=== PATIENT | female | born 1955 | race Caucasian/White ===

== ENCOUNTER 2017-03-19 03:15 | Emergency (ER) | payer MEDICARE, OTHER ==
[2017-03-19] MEDS ORDERED: ONDANSETRON HCL 4 MG/2 ML VIAL ONE (03:43)
[2017-03-19 03:46] LABS: BASOPHILS 0.6 % (0.0-2.0); EOSINOPHILS 2.8 % (0.0-6.0); EOSINOPHILS# 0.2 X 10^3uL (0.0-0.4); HEMATOCRIT 38.6 % (36.0-48.0); HEMOGLOBIN 12.9 g/dL (12.0-16.0); LYMPHOCYTES# 2.7 X 10^3uL (0.8-3.8); MEAN CELL VOLUME 81.1 fL (80.0-100.0); MEAN CORPUS. HGB CONCENTRATION 33.3 g/dL (32.0-36.0); MEAN PLATELET VOLUME 7.3 fL (7.4-10.4); MONOCYTES 9.6 % (2.0-10.0); MONOCYTES# 0.8 X 10^3uL (0.2-1.0); NEUTROPHILS# 4.5 X 10^3uL (2.6-6.7); PLATELET COUNT 490 X 10^3uL (130-440); RED BLOOD COUNT 4.76 X 10^6uL (4.20-6.10); RED CELL DISTRIBUTION WIDTH 13.4 % (11.5-14.5); WHITE BLOOD COUNT 8.2 X 10^3uL (3.9-10.7)
[2017-03-19 03:57] LABS: BLOOD UREA NITROGEN 9 mg/dL (7-17); CHLORIDE 102 mmol/L (98-107); EST GLOMERULAR FILTRATION RATE > 60 mL/min; GLUCOSE 99 mg/dL (70-100); POTASSIUM 3.6 mmol/L (3.5-5.1); SODIUM 142 mmol/L (137-145)
--- NOTE | 2017-03-19 04:52 | ER NURSING DOCUMENTATION ---
Nurse's Notes [facility] Name:Jennifer Valenzuela Age:61 yrs Sex:Female :1955 Arrival Date:03/19/2017 Time:03:15 Bed1 Private MD:Hussain Pat Diagnosis:Joint Pain-: Side Effect from Reclast (Zoledronate);Dehydration Presentation: 03/19 03:23 Presenting complaint: Patient states: pt states that earlier this week she was given a bw2 shot for her OA, pt states that since the shot shes had increased joint pain and her 90 mg of morphine a day is not controling her pain. pt states that because of her pain she now has nausea. Transition of care: patient was not received from another setting of care. 03:23 Acuity: ADRIANNA 3 bw2 03:23 Method Of Arrival: Walk In 2 Triage Assessment: 03:26 General: Appears uncomfortable, Behavior is anxious. Pain: Complains of pain in bw2 generalized joint pain. GI: Reports nausea. Historical: - Allergies: Ziagen; Compazine; Ciprofloxacin HCl; Prochlorperazine Maleate; prochlorperazine Edisylate; - Tetanus: < 10 years. - Ebola Screening: : Patient negative for fever greater than or equal to 101.5 degrees Fahrenheit, and additional compatible Ebola Virus Disease symptoms. Patient denies exposure to infectious person. Patient denies travel to an Ebola-affected area in the 21 days before illness onset. No symptoms or risks identified at this time. . - Immunization history: Flu Vaccine < 1 year. - Social history: Smoking status: Patient states was never smoker of tobacco. Screenin:39 Infectious Disease Risk None. Abuse screen: Denies threats or abuse. Nutritional bw2 screening: No deficits noted. Assessment: 03:39 See Triage Assessment done by same RN. bw2 Vital Signs: 03:27 BP 111 / 88; Pulse 92; Resp 21; Temp 98(O); Pulse Ox 97% ; Weight 68.04 kg; Height 5 bw2 ft. 7 in. (170.18 cm); Pain 10/10; 04:45 BP 123 / 88; Pulse 76; Resp 16; Pulse Ox 98% ; jt 03:27 Body Mass Index 23.49 (68.04 kg, 170.18 cm) bw2 ED Course: 03:15 Patient arrived in ED. jt 03:16 Dorene Fallon is Primary Nurse. bw2 03:16 Hussain Pat MD is Private Physician. jt 03:25 Triage completed. bw2 03:26 Adams Gallardo MD is Attending Physician. cd 03:32 Inserted peripheral IV: saline lock: 20 gauge in right antecubital area and blood jt collected. 03:39 Valuables Remains with patient. bw2 04:41 Hussain Pat MD is Referral Physician. cd Administered Medications: 03:30 Drug: NS 0.9% 1000 ml; Route: IV; Rate: 1 bolus; Site: right antecubital; bw2 04:28 Follow up: IV Status: Completed infusion bw2 03:30 Drug: Zofran 4 mg; Route: IVP; Infused Over: 2 mins; Site: right antecubital; bw2 04:28 Follow up: Response: No adverse reaction bw2 03:33 Drug: Dilaudid 1 mg; Route: IVP; Site: right antecubital; bw2 04:28 Follow up: Response: No adverse reaction bw2 04:25 Drug: Dilaudid 0.5 mg; Route: IVP; Site: right antecubital; bw2 04:50 Follow up: Response: Pain is decreased 2 Outcome: 04:42 Discharge ordered by . uday 04:51 Discharged to home ambulatory. bw2 04:51 Discharged to home with significant other. 04:51 Condition: good 04:51 Discharge Assessment: Patient awake, alert and oriented x 3. No cognitive and/or functional deficits noted. Patient verbalized understanding of disposition instructions. 04:51 Discharge instructions given to patient, Instructed on follow up and referral plans. medication usage, Demonstrated understanding of instructions, Prescriptions given X 1. 04:52 Patient left the ED. bw2 06 15:52 Discharge F/U Call: Unable to reach: left voicemail: lolis Signatures: Vale Roberto RN RN Adams Pedroza MD MD cd Tennant, Joanne jt Wisely, Beth bw2
--- NOTE | 2017-03-19 04:52 | ER PHYSICIAN DOCUMENTATION ---
Physician Documentation [facility] Name:Jennifer Valenzuela Age:61 yrs Sex:Female :1955 Arrival Date:03/19/2017 Time:03:15 Bed1 Private MD:Hussain Pat ED, Chris Disposition: 03/19/17 04:42 Discharged to Home/Self Care. Impression: Joint Pain - : Side Effect from Reclast (Zoledronate), Dehydration. - Condition is Good. - Discharge Instructions: ARTHRALGIA, DEHYDRATION (8y-Adult). - Medical Reconciliation form form. - Follow up: Hussain Pat MD; When: 1 - 2 days; Reason: Recheck today's complaints, Continuance of care. - Problem is new. - Symptoms have improved. - Notes: Continue to drink 2 - 3 quarts of water every day to stay well hydrated. Take your pain meds for pain control.. Follow up with Dr. Hussain Pat in 1 - 2 days for recheck. Historical: - Allergies: Ziagen; Compazine; Ciprofloxacin HCl; Prochlorperazine Maleate; prochlorperazine Edisylate; - Tetanus: < 10 years. - Ebola Screening: : Patient negative for fever greater than or equal to 101.5 degrees Fahrenheit, and additional compatible Ebola Virus Disease symptoms. Patient denies exposure to infectious person. Patient denies travel to an Ebola-affected area in the 21 days before illness onset. No symptoms or risks identified at this time. . - Immunization history: Flu Vaccine < 1 year. - Social history: Smoking status: Patient states was never smoker of tobacco. Vital Signs: 03/19 03:27 BP 111 / 88; Pulse 92; Resp 21; Temp 98(O); Pulse Ox 97% ; Weight 68.04 kg; Height 5 bw2 ft. 7 in. (170.18 cm); Pain 10/10; 04:45 BP 123 / 88; Pulse 76; Resp 16; Pulse Ox 98% ; jt 03:27 Body Mass Index 23.49 (68.04 kg, 170.18 cm) bw2 MDM: 03:36 Patient medically screened. cd 03/19 03:51 Order name: CBC AUTO DIF, MDIF/RMOR IF IND; Complete Time: 04:04 EDMS 03/19 04:03 Interpretation: Normal Except: PLATELET COUNT 490. 03/19 04:02 Order name: BASIC METABOLIC PANEL; Complete Time: 04:04 EDMS 03/19 04:04 Interpretation: Normal Except: CALCIUM 8.0. 03/20 04:45 Order name: BLOOD CULTURE EDMS 03/20 04:45 Order name: BLOOD CULTURE EDMS Dispensed Medications: 03:30 Drug: NS 0.9% 1000 ml; Route: IV; Rate: 1 bolus; Site: right antecubital; bw2 04:28 Follow up: IV Status: Completed infusion bw2 03:30 Drug: Zofran 4 mg; Route: IVP; Infused Over: 2 mins; Site: right antecubital; bw2 04:28 Follow up: Response: No adverse reaction bw2 03:33 Drug: Dilaudid 1 mg; Route: IVP; Site: right antecubital; bw2 04:28 Follow up: Response: No adverse reaction bw2 04:25 Drug: Dilaudid 0.5 mg; Route: IVP; Site: right antecubital; bw2 04:50 Follow up: Response: Pain is decreased bw2 Signatures: Adams Gallardo MD MD cd Wisely, Beth bw2
== END 2017-03-19 04:52 | disposition home or self-care (01) ==
LOC: ER 03:15
DX: M25.50 Pain in unspecified joint (principal); T45.8X5A Adverse effect of other primarily systemic and hematological agents, initial encounter; E86.0 Dehydration; R11.2 Nausea with vomiting, unspecified; M19.90 Unspecified osteoarthritis, unspecified site; Z79.899 Other long term (current) drug therapy
CPT/HCPCS: 36415; 80048; 85025; 87040; 96361; 96374; 96375; 96376; 99283; 99284; J1170; J2405

== ENCOUNTER 2017-04-08 22:51 | Emergency (ER) | payer MEDICARE, OTHER ==
--- NOTE | 2017-04-08 23:52 | ER NURSING DOCUMENTATION ---
Nurse's Notes [facility] Name:Jennifer Valenzuela Age:61 yrs Sex:Female :1955 Arrival Date:04/08/2017 Time:22:51 Bed2 Private MD:Hussain Pat Diagnosis:TMJ Arthralgia Presentation: 04/08 22:54 Presenting complaint: Patient states: left sided jaw pain. pt states she grinds her bw2 teeth and is having left sided jaw pain. pt denies nausea or vomiting. Transition of care: patient was not received from another setting of care. 22:54 Acuity: ADRIANNA 3 bw2 22:54 Method Of Arrival: Walk In 2 Triage Assessment: 22:55 General: Appears in no apparent distress, uncomfortable, Behavior is anxious, bw2 appropriate for age, cooperative. Pain: Complains of pain in left sided jaw pain. Historical: - Allergies: Ziagen; Compazine; Ciprofloxacin HCl; Prochlorperazine Maleate; prochlorperazine Edisylate; - Tetanus: < 10 years. - Ebola Screening: : Patient negative for fever greater than or equal to 101.5 degrees Fahrenheit, and additional compatible Ebola Virus Disease symptoms. Patient denies exposure to infectious person. Patient denies travel to an Ebola-affected area in the 21 days before illness onset. No symptoms or risks identified at this time. . - Immunization history: Flu Vaccine < 1 year. - Social history: Smoking status: Patient states was never smoker of tobacco. Screenin:56 Infectious Disease Risk None. Abuse screen: Denies threats or abuse. Nutritional bw2 screening: No deficits noted. Assessment: 22:56 See Triage Assessment done by same RN. bw2 Vital Signs: 22:52 BP 141 / 93 LA Sitting (auto/reg); Pulse 93 RA; Resp 24 S; Temp 98.3(O); Weight 65.77 em3 kg (R); Height 5 ft. 6 in. (167.64 cm) (R); Pain 9/10; 22:52 Body Mass Index 23.40 (65.77 kg, 167.64 cm) em3 ED Course: 22:51 Patient arrived in ED. em3 22:52 Hussain Pat MD is Private Physician. em3 22:52 Enmanuel Aviles MD is Attending Physician. nichole 22:54 Dorene Fallon is Primary Nurse. bw2 22:55 Triage completed. bw2 22:56 Valuables Remains with patient Patient has correct armband on for positive em3 identification. Bed in low position. Call light in reach. Side rails up X 1. 23:12 Hussain Pat MD is Referral Physician. nichole Administered Medications: No medications were administered Outcome: 23:13 Discharge ordered by . nichole 23:51 Discharged to home ambulatory, with significant other. bw2 23:51 Condition: good 23:51 Discharge Assessment: Patient awake, alert and oriented x 3. No cognitive and/or functional deficits noted. Patient verbalized understanding of disposition instructions. 23:51 Instructed on discharge instructions, follow up and referral plans. Demonstrated understanding of instructions. 23:51 Patient left the ED. bw2 Signatures: Enmanuel Aviles MD MD jm Meiklejohn, Eric em3 Wisely, Beth bw2
--- NOTE | 2017-04-08 23:52 | ER PHYSICIAN DOCUMENTATION ---
Physician Documentation [facility] Name:Jennifer Valenzuela Age:61 yrs Sex:Female :1955 Arrival Date:04/08/2017 Time:22:51 Bed2 Private MD:Hussain Pat ED, John Disposition: 04/08/17 23:13 Discharged to Home/Self Care. Impression: TMJ Arthralgia. - Condition is Good. - Discharge Instructions: TMJ SYNDROME. - Medical Reconciliation form form. - Follow up: Hussain Pat MD; When: As needed; Reason: Continuance of care. - Problem is new. - Symptoms have improved. HPI: 04/09 03:07 This 61 yrs old Female presents to ER via Walk In with complaints of Jaw Pain. 03:07 The patient or guardian reports pain. The complaints affect the left cheek. Onset: The jm symptom(s)/episode began/occurred yesterday, and became worse today. Pt here for TMJ pain on the L side. Pt grinds her teeth at night and broke her mouth guard a few weeks ago, but her pain is very bad right now in the jaw and she is requesting a nerve block. . Historical: - Allergies: Ziagen; Compazine; Ciprofloxacin HCl; Prochlorperazine Maleate; prochlorperazine Edisylate; - Tetanus: < 10 years. - Ebola Screening: : Patient negative for fever greater than or equal to 101.5 degrees Fahrenheit, and additional compatible Ebola Virus Disease symptoms. Patient denies exposure to infectious person. Patient denies travel to an Ebola-affected area in the 21 days before illness onset. No symptoms or risks identified at this time. . - Immunization history: Flu Vaccine < 1 year. - Social history: Smoking status: Patient states was never smoker of tobacco. ROS: 03:07 ENT: Positive for jaw pain. jm 03:07 Respiratory: Negative for cough, shortness of breath. Exam: 03:07 Head/face: Noted is no obvious of injury or deformity except tenderness, that is mild, jm of the left jaw and left cheek. 03:07 ENT: Mouth: mild trismus. , Posterior pharynx: is normal. 03:07 Neck: Thyroid: appears normal, Trachea: is midline with no obvious abnormalities. Vital Signs: 04/08 22:52 BP 141 / 93 LA Sitting (auto/reg); Pulse 93 RA; Resp 24 S; Temp 98.3(O); Weight 65.77 em3 kg (R); Height 5 ft. 6 in. (167.64 cm) (R); Pain 9/10; 22:52 Body Mass Index 23.40 (65.77 kg, 167.64 cm) em3 Procedures: 04/09 03:07 Nerve block: (dental) of left inferior alveolar nerve, Medication: Marcaine 0.5%nichole Amount: 20 mls were injected, Effect: the patient's symptoms are improved, Set up for procedure. Performed by Enmanuel Aviles MD Patient tolerated well. MDM: 04/08 22:52 Patient medically screened. nichole 04/09 03:07 Differential diagnosis: TMJ arthralgia. Data reviewed: vital signs, nurses notes, old medical records, and as a result, I will discharge patient. Counseling: I had a detailed discussion with the patient and/or guardian regarding: the historical points, exam findings, and any diagnostic results supporting the discharge/admit diagnosis, the need for outpatient follow up, with the patient's primary care provider, a dentist. Dispensed Medications: No medications were administered Signatures: Enmanuel Aviles MD MD jm Wisely, Beth 2
== END 2017-04-08 23:52 | disposition home or self-care (01) ==
LOC: ER 22:51
DX: M26.622 Arthralgia of left temporomandibular joint (principal)
CPT/HCPCS: 64400; 64450; 99281; 99283